=== PATIENT | female | born 2000 | race Caucasian/White ===

== ENCOUNTER 2020-09-27 11:53 | Emergency (ER) | payer BC, SELFPAY ==
--- NOTE | 2020-09-27 12:07 | ED.GENADULT ---
HPI - General Adult General Chief complaint: Upper Respiratory Infection Stated complaint: upperback pain/cough Time Seen by Provider: 09/27/20 12:07 Source: patient Mode of arrival: ambulatory Limitations: no limitations History of Present Illness HPI narrative: 19-year-old female patient presents to the [facility] with complaints of cold symptoms and some upper back pain. Patient states that the sore throat started about 3 days ago and states she has had some runny nose, congestion and then started having some upper back pain. Patient denies taking any medications for her symptoms so far however she did report that she did take one of her parents hydrocodone for the back pain. Patient denies any chest pain or shortness of breath. Patient denies any abdominal pain, nausea, vomiting or diarrhea. Denies any or breast-feeding. Denies any fevers that she is aware of. Patient does report that she has a friend that she lives with that has similar symptoms and has lost her taste but they have not been tested for Covid at this time. Related Data Home Medications Medication Instructions Recorded Confirmed No Home Medications 09/27/20 09/27/20 Allergies Allergy/AdvReac Type Severity Reaction Status Date / Time ceftriaxone [From Rocephin] Allergy Hives Verified 09/27/20 12:24 Review of Systems Review of Systems: Narrative: CONSTITUTIONAL: Denies fever, chills, or sweats, positive body aches EYES: Denies visual changes, redness, or discharge. ENT: Positive rhinorrhea, congestion, sore throat, denies otalgia. CARDIOVASCULAR: Denies chest pain, palpitations, or edema. RESPIRATORY: Denies cough or dyspnea. GASTROINTESTINAL: Denies abdominal pain, nausea, vomiting, or diarrhea. GENITOURINARY: Denies dysuria or hematuria. SKIN: Denies rash or itching. MUSCULOSKELETAL: Positive upper back pain, denies joint pain, or myalgia. NEUROLOGIC: Positive headache, numbness, or weakness. PSYCHIATRIC: Denies anxiety or depression. PMFSH Comments At the time of my signature I agree with nursing past medical history, surgical, social, and family history. There is no relevant family history pertinent to the presenting complaint. Exam Narrative: Exam Narrative: GENERAL: Well-appearing, well-nourished, and in no acute distress. HEAD: Normocephalic, atraumatic. EYES: PERRLA and EOMI. ENT: Nares with erythema and edema noted bilaterally, no rhinorrhea or epistaxis. Mucous membranes moist. Posterior pharynx with slight erythema but no tonsil enlargement, no exudates or lesions present. Bilateral TMs are clear no erythema or foreign bodies to the canal. NECK: Supple. No lymphadenopathy CHEST: Clear to auscultation. No respiratory distress. HEART: Regular rate and rhythm. No murmur heard. Normal peripheral pulses. ABDOMEN: Soft, nontender, nondistended, normal active bowel sounds. EXTREMITIES: Normal range of motion. No edema. SKIN: Warm, dry, no rash. NEURO: No focal deficits. Alert and oriented x3. Course Vital Signs Vital signs: Vital Signs Temperature 37.4 C 09/27/20 12:12 Pulse Rate 97 09/27/20 12:12 Respiratory Rate 16 09/27/20 12:12 Blood Pressure 139/90 09/27/20 12:12 Pulse Oximetry 99 09/27/20 12:12 Temperature 37.4 C 09/27/20 12:12 Pulse Rate 97 09/27/20 12:12 Respiratory Rate 16 09/27/20 12:12 Blood Pressure 139/90 09/27/20 12:12 Pulse Oximetry 99 09/27/20 12:12 Vital signs reviewed The patient has been informed that they may have pre-hypertension or Hypertension based on a BP reading in the department. I recommend that the patient call the primary care provider listed on their discharge instructions or a physician of their choice this week to arrange follow up for further evaluation of possible pre-hypertension or Hypertension Medical Decision Making Differential Diagnosis Differential Diagnosis: Differential diagnosis: Allergic rhinitis, chronic sinusitis, tonsillitis, acute sinus
[2020-09-27 12:12] VITALS: BP 139/90; PULSE 97; RESP 16; TEMP 37.4; O2SAT 99
== END 2020-09-27 13:03 | disposition home or self-care (01) ==
PROVIDERS: Emergency Provider Nurse Practitioner Family
DX: Z20.828 Contact with and (suspected) exposure to other viral communicable diseases (principal)
CPT/HCPCS: 87081; 99203; G0463